=== PATIENT | male | born 1960 | race Caucasian/White ===

== ENCOUNTER 2017-01-28 00:39 | Inpatient (IN) | payer OTHER ==
[~2017-01-28] VITALS: Ht 165.1 cm; Wt 79.4 kg
[2017-01-28 00:57] VITALS: BP 155/93
[2017-01-28] MEDS ORDERED: HYDROmorphone 1 MG/ML AMP IVP ONE ×2 (02:00→04:30)
[2017-01-28 02:27] LABS: BASOPHILS # (AUTO) 0.1 K/uL (0.00-0.22); BASOPHILS % (AUTO) 0.9 % (0.0-2.0); EOSINOPHILS # (AUTO) 0.2 K/uL (0-0.4); EOSINOPHILS % (AUTO) 1.4 % (0.0-4.0); HEMATOCRIT 44.1 % (36-52); HEMOGLOBIN 14.2 g/dL (12.0-18.0); LYMPHOCYTES # (AUTO) 1.1 K/uL (2.0-11.5); LYMPHOCYTES % (AUTO) 8.3 % (20.5-51.1); MEAN CORPUSCULAR HEMOGLOBIN 27 pg (27-31); MEAN CORPUSCULAR HGB CONC 32 g/dL (33-37); MEAN CORPUSCULAR VOLUME 82 fL (80-94); MONOCYTES # (AUTO) 0.5 K/uL (0.8-1.0); MONOCYTES % (AUTO) 3.6 % (1.7-9.3); NEUTROPHILS # (AUTO) 11.6 K/uL (1.8-7.7); NEUTROPHILS % (AUTO) 85.8 % (42.2-75.2); PLATELET COUNT (AUTO) 285 K/uL (140-450); RED BLOOD CELL COUNT(AUTO) 5.36 MIL/uL (4.20-6.10)
[2017-01-28 02:36] LABS: APPEARANCE,URINE CLEAR (CLEAR); BILIRUBIN,URINE NEGATIVE (NEGATIVE); BLOOD, URINE 1+ (NEGATIVE); COLOR,URINE YELLOW (YELLOW); LEUKOCYTE ESTERASE ,URINE NEGATIVE (NEGATIVE); NITRITE, URINE NEGATIVE (NEGATIVE); PH,URINE 5.5 (5.0-9.0); PROTEIN,URINE TRACE (NEGATIVE); UGLUCOSE NEGATIVE (NEGATIVE); UROBILINOGEN,URINE 0.2 EU/dL (0.2 - 1)
[2017-01-28 02:41] LABS: ANION GAP 11.4 (8-16); CALCIUM 8.7 mg/dL (8.5-10.1); CARBON DIOXIDE 27.6 mmol/L (21-32); CREATININE 0.9 mg/dL (0.7-1.3)
[2017-01-28 02:47] LABS: ALBUMIN 3.8 g/dL (3.4-5.0); TOTAL BILIRUBIN 0.7 mg/dL (0.0-1.0); TOTAL PROTEIN, SERUM 8.1 g/dL (6.4-8.2); WHITE BLOOD COUNT (AUTO) 13.5 K/uL (4.8-10.8)
[2017-01-28 02:58] LABS: BACTERIA,URINE OCCASSIONAL /HPF (None Seen); MUCUS,URINE 1+ /LPF (None Seen); RBC,URINE 0-5 (RARE) /HPF (0-5); SQUAMOUS EPITHELIAL CELL,UR 0-3 (FEW) /LPF (0-3 (FEW)); WBC,URINE 0-5 (RARE) /HPF (0-5)
[2017-01-28] MEDS ORDERED: DOCUSATE SODIUM 100 MG GELCAP PO PRN (04:35)
[2017-01-28] MEDS ORDERED: ONDANSETRON 4 MG/2 ML VIAL IM/IVP PRN (04:35)
[2017-01-28] MEDS ORDERED: MORPHINE SULFATE 2 MG/ML SYR IVP PRN (04:35)
[2017-01-28] MEDS ORDERED: ACETAMINOPHEN 325 MG TAB PO PRN (04:35)
[2017-01-28 05:09] LABS: AMPHETAMINE, URINE NEG. ng/ml (NEG <=1000); BARBITURATE, URINE NEG. ng/ml (NEG <=200); BENZODIAZEPINE, URINE NEG. ng/mL (NEG <=200); CANNABINOID, URINE POS. ng/mL (NEG <=50); COCAINE, URINE NEG. ng/mL (NEG <=300); OPIATE, URINE POS. ng/mL (NEG <=2000); PHENCYCLIDINE SCREEN,URINE NEG. ng/mL (NEG <=25)
[2017-01-28 05:11] LABS: PARTIAL THROMBOPLASTIN TIME 28.2 secs (22-35.6); PROTHROMBIN TIME 10.4 secs (10.8-13.4)
[2017-01-28 05:19] LABS: CHOL/HDL RATIO 4.7 (1-4.5); MAGNESIUM 1.7 mg/dL (1.8-2.4); PHOSPHORUS 3.3 mg/dL (2.5-4.9); THYROID STIMULATING HORMONE 1.05 uIU/mL (0.34-3.74)
[2017-01-28] MEDS ORDERED: AMPICILLIN 1,000 MG VIAL ONE (05:42)
[2017-01-28] MEDS: NACL 0.9% 1,000 ML IV SCH ×3 (05:57→21:15)
[2017-01-28] MEDS: AMPICILLIN 1,000 MG in NACL 0.9% 50 ML IV SCH ×3 (05:58→21:20)
[2017-01-28 06:10] VITALS: BP 161/89
[2017-01-28 08:00] VITALS: BP 135/69
[2017-01-28] MEDS ORDERED: HYDROmorphone 1 MG/ML AMP IVP PRN ×3 (09:50→13:25)
[2017-01-28 12:00] VITALS: BP 157/79
[2017-01-28] MEDS ORDERED: MAG SULF 2000 MG/WATER PREMIX 50 ML IV SCH (12:00)
[2017-01-28 16:00] VITALS: BP 158/88
[2017-01-28] MEDS ORDERED: PROBIOTIC SCREEN 1 EA MISC MC PRN (16:15)
[2017-01-28] MEDS: HYDROmorphone 1 MG/ML AMP IVP PRN (17:30)
[2017-01-28 20:00] VITALS: BP 151/91
[2017-01-29] MEDS ORDERED: MORPHINE SULFATE 2 MG/ML SYR IVP SCH (00:35)
[2017-01-29 01:55] VITALS: BP 156/96
[2017-01-29] MEDS: NACL 0.9% 1,000 ML IV SCH ×3 (02:13→21:28)
[2017-01-29] MEDS: HYDROmorphone 1 MG/ML AMP IVP PRN (02:13)
[2017-01-29 04:20] VITALS: BP 143/90
[2017-01-29] MEDS: AMPICILLIN 1,000 MG in NACL 0.9% 50 ML IV SCH ×3 (05:42→21:28)
[2017-01-29] MEDS ORDERED: HYDROmorphone 1 MG/ML AMP IVP PRN ×2 (05:50→13:30)
[2017-01-29 06:31] LABS: BASOPHILS # (AUTO) 0.1 K/uL (0.00-0.22); BASOPHILS % (AUTO) 0.7 % (0.0-2.0); EOSINOPHILS # (AUTO) 0.2 K/uL (0-0.4); EOSINOPHILS % (AUTO) 1.1 % (0.0-4.0); HEMOGLOBIN 13.7 g/dL (12.0-18.0); LYMPHOCYTES # (AUTO) 1.6 K/uL (2.0-11.5); MEAN CORPUSCULAR HEMOGLOBIN 28 pg (27-31); MEAN CORPUSCULAR HGB CONC 34 g/dL (33-37); MEAN CORPUSCULAR VOLUME 83 fL (80-94); MONOCYTES # (AUTO) 1.2 K/uL (0.8-1.0); MONOCYTES % (AUTO) 8.1 % (1.7-9.3); NEUTROPHILS # (AUTO) 11.5 K/uL (1.8-7.7); NEUTROPHILS % (AUTO) 79.1 % (42.2-75.2); PLATELET COUNT (AUTO) 251 K/uL (140-450); RED BLOOD CELL COUNT(AUTO) 4.97 MIL/uL (4.20-6.10); RED CELL DISTRIBUTION WIDTH 13.1 % (11.6-13.7); WHITE BLOOD COUNT (AUTO) 14.6 K/uL (4.8-10.8)
[2017-01-29 06:42] LABS: CALCIUM 8.4 mg/dL (8.5-10.1); CARBON DIOXIDE 26.5 mmol/L (21-32); CREATININE 0.8 mg/dL (0.7-1.3); MAGNESIUM 2.2 mg/dL (1.8-2.4); POTASSIUM 4.5 mmol/L (3.5-5.1)
[2017-01-29 08:00] VITALS: BP 149/92
[2017-01-29] MEDS: LACTOBACILLUS RHAMNOSUS GG 1 EACH CAP PO SCH (08:43)
[2017-01-29] MEDS: HYDROcodone/APAP 7.5/325 MG 1 TAB PO PRN ×2 (08:44→22:59)
[2017-01-29 12:00] VITALS: BP 142/86
[2017-01-29] MEDS ORDERED: SUCCINYLCHOLINE CHLORIDE 200 MG/10 ML VIAL IV ONE (12:40)
[2017-01-29] MEDS ORDERED: PROPOFOL 200 MG/20 ML VIAL IV ONE (12:40)
[2017-01-29] MEDS ORDERED: ROCURONIUM 50 MG/5 ML VIAL IV ONE (12:40)
[2017-01-29] MEDS ORDERED: GLYCOPYRROLATE 0.2 MG/ML VIAL IV ONE (12:40)
[2017-01-29] MEDS ORDERED: NEOSTIGMINE 1:1000 10 MG/10 ML VIAL IM ONE (12:40)
[2017-01-29] MEDS ORDERED: DEXAMETHASONE 4 MG/ML VIAL IVP ONE (12:40)
[2017-01-29] MEDS ORDERED: ONDANSETRON 4 MG/2 ML VIAL IVP ONE (12:40)
[2017-01-29] MEDS ORDERED: SEVOFLURANE 250 ML BTL INH ONE (12:40)
[2017-01-29] MEDS ORDERED: BUPIVACAINE-MPF/EPI 0.5% 30 ML VIAL INJ ONE (12:43)
[2017-01-29] MEDS ORDERED: fentaNYL 0.05 MG/ML VIAL ONE (13:00)
[2017-01-29] MEDS ORDERED: MIDAZOLAM 2 MG/2 ML VIAL ONE (13:00)
[2017-01-29] MEDS ORDERED: MEPERIDINE 50 MG/ML SYR ONE (13:01)
[2017-01-29] MEDS: LACTATED RINGERS 1,000 ML IV SCH ×2 (13:30→21:50)
[2017-01-29] MEDS ORDERED: ONDANSETRON 4 MG/2 ML VIAL IVP PRN (13:30)
[2017-01-29] MEDS ORDERED: diphenhydrAMINE 50 MG/ML VIAL IVP PRN (13:30)
[2017-01-29] MEDS ORDERED: MEPERIDINE 25 MG/ML SYR IVP PRN (13:30)
[2017-01-29 16:00] VITALS: BP 150/84
[2017-01-29 16:04] LABS: ANION GAP 12.9 (8-16); CALCIUM 8.4 mg/dL (8.5-10.1); CARBON DIOXIDE 23.9 mmol/L (21-32); CREATININE 0.9 mg/dL (0.7-1.3); POTASSIUM 4.8 mmol/L (3.5-5.1)
[2017-01-29 16:12] LABS: ALBUMIN 2.9 g/dL (3.4-5.0); TOTAL BILIRUBIN 1.7 mg/dL (0.0-1.0); TOTAL PROTEIN, SERUM 7.1 g/dL (6.4-8.2)
[2017-01-29 20:00] VITALS: BP 140/61
[2017-01-30] VITALS: BP 126/96
[2017-01-30 04:00] VITALS: BP 135/87
[2017-01-30] MEDS: HYDROcodone/APAP 7.5/325 MG 1 TAB PO PRN ×3 (04:16→19:43)
[2017-01-30] MEDS: AMPICILLIN 1,000 MG in NACL 0.9% 50 ML IV SCH ×3 (05:17→20:06)
[2017-01-30] MEDS: PHENAZOPYRIDINE 100 MG TAB PO PRN ×2 (05:36→17:57)
[2017-01-30] MEDS: LACTATED RINGERS 1,000 ML IV SCH (05:54)
[2017-01-30] MEDS: NACL 0.9% 1,000 ML IV SCH ×3 (05:58→23:15)
[2017-01-30 06:25] LABS: HEMOGLOBIN A1C 5.6 % (4.8-5.6); T4 (THYROXINE) 7.8 ug/dL (4.5-12.0)
[2017-01-30 06:56] LABS: BASOPHILS # (AUTO) 0.1 K/uL (0.00-0.22); BASOPHILS % (AUTO) 0.4 % (0.0-2.0); EOSINOPHILS # (AUTO) 0.1 K/uL (0-0.4); HEMATOCRIT 37.2 % (36-52); HEMOGLOBIN 12.4 g/dL (12.0-18.0); LYMPHOCYTES # (AUTO) 1.1 K/uL (2.0-11.5); LYMPHOCYTES % (AUTO) 8.3 % (20.5-51.1); MEAN CORPUSCULAR HEMOGLOBIN 27 pg (27-31); MEAN CORPUSCULAR HGB CONC 33 g/dL (33-37); MEAN CORPUSCULAR VOLUME 82 fL (80-94); MONOCYTES % (AUTO) 7.4 % (1.7-9.3); NEUTROPHILS # (AUTO) 11.4 K/uL (1.8-7.7); NEUTROPHILS % (AUTO) 82.9 % (42.2-75.2); PLATELET COUNT (AUTO) 254 K/uL (140-450); RED BLOOD CELL COUNT(AUTO) 4.51 MIL/uL (4.20-6.10); RED CELL DISTRIBUTION WIDTH 13.4 % (11.6-13.7)
[2017-01-30 07:16] LABS: ALBUMIN 2.6 g/dL (3.4-5.0); ANION GAP 12.7 (8-16); CALCIUM 8.3 mg/dL (8.5-10.1); CARBON DIOXIDE 24.4 mmol/L (21-32); CREATININE 0.8 mg/dL (0.7-1.3); POTASSIUM 4.1 mmol/L (3.5-5.1); TOTAL BILIRUBIN 0.6 mg/dL (0.0-1.0); TOTAL PROTEIN, SERUM 6.9 g/dL (6.4-8.2)
[2017-01-30 07:49] LABS: MAGNESIUM 2.3 mg/dL (1.8-2.4); PHOSPHORUS 1.9 mg/dL (2.5-4.9)
[2017-01-30 08:00] VITALS: BP 138/84
[2017-01-30] MEDS: LACTOBACILLUS RHAMNOSUS GG 1 EACH CAP PO SCH (08:50)
[2017-01-30 09:01] LABS: WHITE BLOOD COUNT (AUTO) 13.7 K/uL (4.8-10.8)
[2017-01-30 12:00] VITALS: BP 144/98
[2017-01-30 16:00] VITALS: BP 148/86
[2017-01-30 20:00] VITALS: BP 149/82
[2017-01-31] VITALS: BP 152/92
[2017-01-31] MEDS: HYDROcodone/APAP 7.5/325 MG 1 TAB PO PRN ×2 (00:34→11:12)
[2017-01-31 04:00] VITALS: BP 155/91
[2017-01-31] MEDS: AMPICILLIN 1,000 MG in NACL 0.9% 50 ML IV SCH (04:28)
[2017-01-31 06:47] LABS: BASOPHILS # (AUTO) 0.1 K/uL (0.00-0.22); EOSINOPHILS # (AUTO) 0.4 K/uL (0-0.4); EOSINOPHILS % (AUTO) 4.1 % (0.0-4.0); HEMATOCRIT 36.2 % (36-52); HEMOGLOBIN 12.3 g/dL (12.0-18.0); LYMPHOCYTES # (AUTO) 2.9 K/uL (2.0-11.5); LYMPHOCYTES % (AUTO) 29.2 % (20.5-51.1); MEAN CORPUSCULAR HEMOGLOBIN 28 pg (27-31); MEAN CORPUSCULAR HGB CONC 34 g/dL (33-37); MEAN CORPUSCULAR VOLUME 83 fL (80-94); MONOCYTES # (AUTO) 0.7 K/uL (0.8-1.0); MONOCYTES % (AUTO) 7.4 % (1.7-9.3); NEUTROPHILS % (AUTO) 58.3 % (42.2-75.2); PLATELET COUNT (AUTO) 301 K/uL (140-450); RED BLOOD CELL COUNT(AUTO) 4.38 MIL/uL (4.20-6.10); RED CELL DISTRIBUTION WIDTH 13.1 % (11.6-13.7); WHITE BLOOD COUNT (AUTO) 10.1 K/uL (4.8-10.8)
[2017-01-31 06:48] LABS: ANION GAP 11.7 (8-16); CALCIUM 8.2 mg/dL (8.5-10.1); CREATININE 0.9 mg/dL (0.7-1.3); POTASSIUM 3.7 mmol/L (3.5-5.1)
[2017-01-31] MEDS ORDERED: BISACODYL 10 MG SUPP RC SCH (07:00)
[2017-01-31] MEDS: NACL 0.9% 1,000 ML IV SCH (07:35)
[2017-01-31 08:14] VITALS: BP 151/95
[2017-01-31] MEDS ORDERED: TAMSULOSIN 0.4 MG CAP PO SCH (08:33)
[2017-01-31] MEDS: LACTOBACILLUS RHAMNOSUS GG 1 EACH CAP PO SCH (11:20)
[2017-01-31] MEDS ORDERED: METR250T2 PO ×2 (12:55→13:54)
[2017-01-31] MEDS ORDERED: LACT10CA1 PO (13:54)
[2017-01-31] MEDS ORDERED: DOCU-264 PO (13:54)
[2017-01-31] MEDS ORDERED: AMOX-999 PO (13:54)
[2017-01-31] MEDS ORDERED: SODIUM PHOS / POTASSIUM PHOS 1 PKT PDR PO SCH (15:10)
== END 2017-01-31 16:00 | disposition home or self-care (01) | DRG 263 ==
LOC: MED 00:39 → MIC 04:51 → MTU 20:24
PROVIDERS: ADMIT Student in an Organized Health Care Education/Training Program; ATTEND Student in an Organized Health Care Education/Training Program
PROC: 0FT44ZZ Resection of Gallbladder, Percutaneous Endoscopic Approach (ICD-10-PCS; principal; 2017-01-29 13:00)
DX: K81.0 Acute cholecystitis (principal); N17.0 Acute kidney failure with tubular necrosis; E43 Unspecified severe protein-calorie malnutrition; E87.1 Hypo-osmolality and hyponatremia; E83.39 Other disorders of phosphorus metabolism; D72.829 Elevated white blood cell count, unspecified; E11.9 Type 2 diabetes mellitus without complications; K21.9 Gastro-esophageal reflux disease without esophagitis; Z53.29 Procedure and treatment not carried out because of patient's decision for other reasons; F10.21 Alcohol dependence, in remission; F12.10 Cannabis abuse, uncomplicated; Z87.891 Personal history of nicotine dependence; Z88.2 Allergy status to sulfonamides; Z88.8 Allergy status to other drugs, medicaments and biological substances; Z88.1 Allergy status to other antibiotic agents; Z68.29 Body mass index [BMI] 29.0-29.9, adult
CPT/HCPCS: 36415; 71010; 76705; 76770; 78445; 80048; 80053; 80305; 81001; 82150; 83036; 83690; 83735; 83880; 84100; 84436; 84443; 85025; 85610; 85730; 86886; 86900; 86901; 87081; 93005; 96374; 96375; 96376; 99285; C1758; C1887; J0290; J0330; J1100; J1170; J2175; J2250; J2270; J2405; J2704; J2710; J3010; J3475; J3490; J7030; Q0092